=== PATIENT | male | born 1955 | race Caucasian/White ===

== ENCOUNTER 2016-09-12 02:18 | Emergency (ER) | payer OTHER ==
--- NOTE | 2016-09-12 02:29 | ED NECK/BACK PAIN COMPLAINT ---
History of Present Illness General Chief Complaint: Low Back Pain/Injury Stated Complaint: "PER BACK PAIN RAIDATING TO ABD" Source: patient Exam Limitations: no limitations Vital Signs & Intake/Output Vital Signs & Intake/Output Vital Signs Date Time Temp Pulse Resp B/P B/P Pulse O2 O2 Flow FiO2 Mean Ox Delivery Rate 09/12 0408 72 20 120/68 97 09/12 0237 98.9 67 22 143/87 99 Allergies Coded Allergies: No Known Allergies (09/12/16) Reconcile Medications Ibuprofen 600 MG TABLET 1 TAB PO TID PRN pain with food Ondansetron (Zofran Odt) 4 MG TAB.RAPDIS 1 TAB SL TID PRN NAUSEA Oxycodone HCl/Acetaminophen (Percocet 5-325 MG Tablet) 5 MG-325 MG TABLET 1 TAB PO 4XDP PRN PAIN FOUR...[id number] Triage Nurses Notes Reviewed? yes Onset: Abrupt Duration: hour(s): Timing: single episode today Quality/Severity: moderate, severe Location: right flank Radiation: right abd Context: was in bed Loss of Consciousness: no loss of consciousness Modifying Factors: rest HPI: 60 yo gentleman, h/o kidney stones, presents with right flank pain for the past 3 hours. "It started around midnight in my back and then wrapped into my abdomen.... Now it really hurts in my lower abdomen." He notes nausea, no vomiting. He denies chest pain, shortness of breath, chills , dysuria. He is otherwise well. Past History Travel History Traveled to [place] past 21 day No Medical History Any Pertinent Medical History? see below for history Cardiovascular: hypertension Surgical History Surgical History: none Family History Hx Contributory? No Review of Systems Review of Systems Constitutional: Reports: no symptoms. Eyes: Reports: no symptoms. Ears, Nose, Throat, Mouth: Reports: no symptoms. Respiratory: Reports: no symptoms. Cardiovascular: Reports: no symptoms. Gastrointestinal/Abdominal: Reports: no symptoms. Musculoskeletal: Reports: no symptoms. Skin: Reports: no symptoms. Neurological/Psychological: Reports: no symptoms. All Other Systems: Reviewed and Negative Physical Exam Physical Exam General Appearance: well developed/nourished, mild distress Head: atraumatic Eyes: Bilateral: normal appearance. Ears, Nose, Throat, Mouth: hearing grossly normal Neck: normal inspection, supple, full range of motion, normal alignment Respiratory: normal breath sounds Cardiovascular: regular rate/rhythm Gastrointestinal: normal bowel sounds, soft, non-tender, no organomegaly Back: normal inspection Extremities: normal range of motion Neurologic/Psych: awake, alert, oriented x 3, normal mood/affect Skin: intact, normal color, warm/dry Progress Differential Diagnosis: myofascial strain, pyelo/UTI, sciatica, ureterolithiasis Plan of Care: Orders Procedure Date/time Status URINALYSIS 09/12 249 Complete LIPASE 09/12 249 Complete COMPREHENSIVE METABOLIC PANEL 09/12 249 Complete CBC WITHOUT DIFFERENTIAL 09/12 249 Complete AMYLASE 09/12 249 Complete Current Medications Sig/Liana Start time Last Medication Dose Stop Time Status Admin Oxycodone/ 1 TAB ONCE ONE 09/12 444 UNVr Acetaminophen 09/12 445 (Percocet) Laboratory Tests 09/12/16 042: Urine Color YEL, Urine Clarity CLEAR, Urine pH 6.0, Ur Specific Rhame >= 1.030 , Urine Protein TRACE H, Urine Ketones NEG, Urine Nitrite NEG, Urine Bilirubin NEG, Urine Urobilinogen 1.0, Ur Leukocyte Esterase NEG, Ur Microscopic SEDIMENT EXAMINED, Urine RBC 3-5, Urine WBC 3-5 H, Urine Bacteria FEW H, Urine Hemoglobin NEG, Urine Glucose NEG 09/12/16 0315: Anion Gap 10, Estimated GFR > 60, BUN/Creatinine Ratio 17.0, Glucose 179 H, Calcium 8.6, Total Bilirubin 0.7, AST 58, ALT 103 H, Alkaline Phosphatase 60, Total Protein 6.0 L, Albumin 3.6, Globulin 2.4, Albumin/Globulin Ratio 1.5, Amylase 45, Lipase 139, CBC w Diff NO MAN DIFF REQ, RBC 4.36 L, MCV 93.2, MCH 31.6 H, RDW 13.1, MPV 7.6, Gran % 61.3, Lymphocytes % 27.2, Monocytes % 9.1, Eosinophils % 2.0, Basophils % 0.4, Absolute Granulocytes 3.4, Absolute Lymphocytes 1.5, Absolute Monocytes 0.5, Absolute Eosinophils 0.1, Absolute Basophils 0, PUBS MCHC 33.9 Diagnostic Imaging: Viewed by Me: CT Scan. Discussed w/RAD: CT Scan. Radiology Impression: ABD/PELVIC CT... RIGHT PUNCTATE STONE W/ HYDRO. Comments: PATIENT: SHAWNA ZAVALA PRESENT AGE: 60 PATIENT ACCOUNT NO: [id number] : 55 LOCATION: [facility] ORDERING PHYSICIAN: MIAN WILL MD SERVICE DATE: 09/12/16 EXAM TYPE: CAT - CT ABD & PELVIS W/O IV CONTRAS EXAMINATION: CT ABDOMEN AND PELVIS WITHOUT CONTRAST CLINICAL INFORMATION: Right flank pain, question kidney stone COMPARISON: None TECHNIQUE: Multidetector volumetric imaging was performed from the superior aspect of the liver through the pubic symphysis. Sagittal and coronal reformatted images were obtained on the technologist's workstation. DLP: 1320.46 mGy-cm FINDINGS: LUNG BASES: The visualized lung bases demonstrate mild atelectasis. LIVER, GALLBLADDER, AND BILIARY TREE: The liver is normal in size, shape, and attenuation. There are 2 cysts in the dome of the liver measuring up to 5.2 cm in diameter. No biliary ductal dilatation is present. The gallbladder is unremarkable. PANCREAS: Partial fatty atrophy is noted. SPLEEN: Unremarkable. ADRENAL GLANDS: Unremarkable. KIDNEYS AND URETERS: There is a punctate calculus in the distal right ureter just proximal to the ureterovesicular junction (image [id number]) with mild hydronephrosis. There are a few bilateral renal cysts measuring up to 3.3 cm in the right kidney. No left hydronephrosis. A few punctate bilateral renal calculi are noted. BLADDER: Unremarkable. GASTROINTESTINAL TRACT: Colonic diverticulosis is noted. The small and large bowel are otherwise unremarkable without evidence of obstruction or pericolonic inflammatory change. The appendix is unremarkable. ABDOMINAL WALL: No significant hernia is appreciated. LYMPH NODES: Normal. VASCULAR: Trace vascular calcification is noted. PELVIC VISCERA: Unremarkable. OSSEOUS STRUCTURES: Scattered degenerative endplate changes are present in the spine. IMPRESSION: 1. Punctate distal right ureteral calculus with mild hydronephrosis. 2. Few punctate bilateral renal calculi. 3. Colonic diverticulosis. 4. Renal and hepatic cysts. DICTATED BY: ROMERO MCGREGOR MD DATE/TIME DICTATED:09/12/16312 [employer] RECRUITER:IRVING DATE/TIME TRANSCRIBED:09/12/16312 CONFIDENTIAL, DO NOT COPY WITHOUT APPROPRIATE AUTHORIZATION. <Electronically signed in Other Vendor System> SIGNED BY: ROMERO MCGREGOR MD 09/12/16326 Departure Departure Disposition: HOME OR SELF CARE Condition: Stable Clinical Impression Primary Impression: Kidney stone Secondary Impressions: Renal colic, bilateral Referrals: CLAIRE CHIU,GRACIA No (PCP/Family) Departure Forms: Customer Survey General Discharge Information Prescriptions: Current Visit Scripts Ibuprofen 1 TAB PO TID PRN pain #30 TAB Ref 1 with food Ondansetron (Zofran Odt) 1 TAB SL TID PRN NAUSEA #10 TAB Oxycodone HCl/Acetaminophen (Percocet 5-325 MG Tablet) 1 TAB PO 4XDP PRN PAIN #4 TAB FOUR...[id number] Comments 09/12/16, 4:44am... pt feels better with supportive medications..... ct scan shows punctate stone... will give percocet x 1 due to moderate/mild discomfort. pt referred to urology if not better.
[2016-09-12 03:24] LABS: ABSOLUTE BASOPHIL COUNT 0 /CUMM (0.0-0.2); ABSOLUTE EOSINOPHIL COUNT 0.1 /CUMM (0.0-0.7); ABSOLUTE GRANULOCYTE CT 3.4 /CUMM (1.4-6.5); ABSOLUTE LYMPH COUNT 1.5 /CUMM (1.2-3.4); ABSOLUTE MONOCYTE COUNT 0.5 /CUMM (0.10-0.60); BASOPHIL % 0.4 % (0.0-2.0); GRANULOCYTE % 61.3 % (42.2-75.2); HEMATOCRIT 40.6 % (42-52); MEAN CORPUSCULAR HGB 31.6 PG (27.0-31.0); MEAN CORPUSCULAR HGB CONC 33.9 G/DL (33.0-37.0); MEAN CORPUSCULAR VOLUME 93.2 FL (80.0-94.0); MEAN PLATELET VOLUME 7.6 FL (7.4-10.4); PLATELET COUNT 135 /CUMM (130-400); RBC DISTRIBUTION WIDTH 13.1 % (11.5-14.5); RED BLOOD CELL CT 4.36 /CUMM (4.70-6.10); WHITE BLOOD CELL COUNT 5.5 /CUMM (4.8-10.8)
--- NOTE | 2016-09-12 03:27 | CT SCAN REPORT ---
EXAMINATION: CT ABDOMEN AND PELVIS WITHOUT CONTRAST CLINICAL INFORMATION: Right flank pain, question kidney stone COMPARISON: None TECHNIQUE: Multidetector volumetric imaging was performed from the superior aspect of the liver through the pubic symphysis. Sagittal and coronal reformatted images were obtained on the technologist's workstation. DLP: 1320.46 mGy-cm FINDINGS: LUNG BASES: The visualized lung bases demonstrate mild atelectasis. LIVER, GALLBLADDER, AND BILIARY TREE: The liver is normal in size, shape, and attenuation. There are 2 cysts in the dome of the liver measuring up to 5.2 cm in diameter. No biliary ductal dilatation is present. The gallbladder is unremarkable. PANCREAS: Partial fatty atrophy is noted. SPLEEN: Unremarkable. ADRENAL GLANDS: Unremarkable. KIDNEYS AND URETERS: There is a punctate calculus in the distal right ureter just proximal to the ureterovesicular junction (image [phone]) with mild hydronephrosis. There are a few bilateral renal cysts measuring up to 3.3 cm in the right kidney. No left hydronephrosis. A few punctate bilateral renal calculi are noted. BLADDER: Unremarkable. GASTROINTESTINAL TRACT: Colonic diverticulosis is noted. The small and large bowel are otherwise unremarkable without evidence of obstruction or pericolonic inflammatory change. The appendix is unremarkable. ABDOMINAL WALL: No significant hernia is appreciated. LYMPH NODES: Normal. VASCULAR: Trace vascular calcification is noted. PELVIC VISCERA: Unremarkable. OSSEOUS STRUCTURES: Scattered degenerative endplate changes are present in the spine. IMPRESSION: 1. Punctate distal right ureteral calculus with mild hydronephrosis. 2. Few punctate bilateral renal calculi. 3. Colonic diverticulosis. 4. Renal and hepatic cysts.
[2016-09-12] MEDS ORDERED: IBUPROFEN600 M1 PO (03:43)
[2016-09-12 04:08] VITALS: BP 120/68
[2016-09-12] MEDS ORDERED: ZOFRAN ODT4 M1 SL (04:37)
[2016-09-12] MEDS ORDERED: PERCOCET 5-3251 EACH PO (04:40)
[2016-09-12] MEDS ORDERED: HYDROCHLOROTH12.5 M3 PO (04:58)
[2016-09-12] MEDS ORDERED: CRESTOR20 M2 PO (04:58)
== END 2016-09-12 04:59 ==
LOC: ERH 02:18
PROVIDERS: Pediatrics
DX: N20.0 Calculus of kidney (principal); N23 Unspecified renal colic
CPT/HCPCS: 74176; 81001; 96361; 96374; 96375; J1885; J2405